=== PATIENT | male | born 1960 | race African-American/Black ===

== ENCOUNTER 2018-12-04 19:47 | Inpatient (IN) | payer MEDICAID ==
[~2018-12-04] VITALS: Ht 167.6 cm; Wt 66.7 kg
[~2018-12-04 19:47] MED LIST: AMLO10TA4 PO; BENA40TA9 PO; HYDR-4134 PO; METF-414 PO; SITA50TA3 PO
[2018-12-04 20:56] LABS: CHLORIDE 119 mEq/L (98-107)
[2018-12-04 20:57] LABS: BASOPHILS % 0.3 % (0.0-2.0); EOSINOPHILS % 0.9 % (0.0-5.0); HEMATOCRIT. 32.2 % (42.0-52.0); HEMOGLOBIN. 10.6 g/dL (14.0-18.0); LYMPHOCYTES % 19.2 % (20.0-50.0); MEAN CORPUSCULAR VOLUME 88.3 fL (80.0-94.0); MEAN PLATELET VOLUME 9.8 fl (7.4-10.4); MONOCYTES % 4.9 % (2.0-8.0); NEUTROPHILS % 74.7 % (40.0-76.0); PLATELET 227 x1000/uL (130-400); RED BLOOD CELL COUNT 3.64 mill/uL (4.7-6.1); RED CELL DISTRIBUTION WIDTH 15.8 % (11.6-14.6)
[2018-12-04 20:58] LABS: INR 1.2; PARTIAL THROMBOPLASTIN TIME 35.3 sec (23.4-31.0); PROTHROMBIN TIME 12.3 sec (9.1-11.1)
[2018-12-04] MEDS ORDERED: KCL 20MEQ/100ML PREMIX 100 ML IV ONE (21:15)
[2018-12-04 22:27] LABS: CLARITY URINE CLEAR (CLEAR); COLOR URINE YELLOW (YELLOW); KETONES URINE NEGATIVE (NEGATIVE); LEUKOCYTE ESTERASE URINE NEGATIVE (NEGATIVE); NITRITE URINE NEGATIVE (NEGATIVE); OCCULT BLOOD URINE NEGATIVE (NEGATIVE); PROTEIN URINE TRACE (NEGATIVE); SPECIFIC GRAVITY URINE 1.019 (1.005-1.030)
[2018-12-05 11:00] VITALS: BP 188/88
[2018-12-05] MEDS ORDERED: AMLODIPINE 5MG TABLET PO SCH (12:30)
[2018-12-05] MEDS ORDERED: ATROPINE SULFATE 1MG/ML VIAL IV PRN (12:30)
[2018-12-05 13:03] VITALS: BP 188/88
[2018-12-05] MEDS ORDERED: MEDICATION NOT ON FORMULARY EA (Metformin Hcl 1 TAB) PO SCH (15:00)
[2018-12-05] MEDS ORDERED: METFORMIN HCL 500MG TABLET PO SCH (15:30)
[2018-12-05 16:14] VITALS: BP 151/61
[2018-12-05] MEDS ORDERED: POTA20TA82 MT (16:27)
[2018-12-05] MEDS ORDERED: POTA25TA8 MT (16:27)
[2018-12-05] MEDS ORDERED: MIRT15TA MT (16:27)
[2018-12-05] MEDS ORDERED: ATOR-2 MT (16:27)
[2018-12-05] MEDS ORDERED: ASPI-986 MT (16:27)
[2018-12-05] MEDS ORDERED: CLOP75TA33 MT (16:27)
[2018-12-05] MEDS ORDERED: CLON0.1T MT (16:27)
[2018-12-05] MEDS ORDERED: INSU100I28 SQ (16:27)
[2018-12-05] MEDS ORDERED: TAMS0.4C31 MT (16:27)
[2018-12-05] MEDS ORDERED: LOSA50TA20 MT (16:27)
[2018-12-05] MEDS ORDERED: COR25 MT (16:27)
[2018-12-05] MEDS ORDERED: BISA10SU8 RC (16:27)
[2018-12-05] MEDS ORDERED: DEXTROSE 50% WATER 50ML SYRINGE IV PRN (16:30)
[2018-12-05] MEDS ORDERED: LEVOFLOXACIN 500 MG XX SCH (16:45)
[2018-12-05] MEDS: ENOXAPARIN 40MG/0.4ML SYR SUBCUT SCH ×2 (17:00→19:09)
[2018-12-05] MEDS ORDERED: MEDICATION NOT ON FORMULARY EA (Hydralazine Hcl 1 TAB) PO SCH (17:00)
[2018-12-05] MEDS ORDERED: HYDRALAZINE HCL 25MG TABLET PO SCH (17:00)
[2018-12-05] MEDS ORDERED: ASPIRIN 325MG EC TABLET PO NR (17:30)
[2018-12-05] MEDS: BLOOD SUGAR DIAGNOSTIC STRIP TEST SCH ×2 (17:35→21:39)
[2018-12-05] MEDS: INSULIN LISPRO 100 UNITS/ML SUBCUT SCH ×2 (17:40→21:00)
[2018-12-05] MEDS: TAMSULOSIN HCL 0.4MG SR CAPSULE PO SCH (18:15)
[2018-12-05] MEDS: PANTOPRAZOLE SODIUM 40 MG/VIAL IV SCH (18:15)
[2018-12-05] MEDS: DEXT 5%/0.45% NACL KCL 20MEQ/L 1,000 ML IV SCH (18:15)
[2018-12-05] MEDS: LOSARTAN POTASSIUM 100 MG TABLET PO SCH (18:15)
[2018-12-05] MEDS: LEVOFLOXACIN 500MG PREMIX 100 ML IV SCH (18:16)
[2018-12-05 20:00] VITALS: BP 147/76
[2018-12-05] MEDS ORDERED: KCL 20MEQ/100ML PREMIX 100 ML IV SCH (21:00)
[2018-12-05] MEDS: ATORVASTATIN CALCIUM 40MG TABLET PO SCH (21:40)
[2018-12-05] MEDS: MIRTAZAPINE 15MG TABLET PO SCH (21:40)
[2018-12-06] VITALS: BP 131/73
[2018-12-06 04:00] VITALS: BP 167/80
[2018-12-06] MEDS: INSULIN LISPRO 100 UNITS/ML SUBCUT SCH ×4 (06:45→20:42)
[2018-12-06] MEDS: BLOOD SUGAR DIAGNOSTIC STRIP TEST SCH ×4 (06:45→20:42)
[2018-12-06 07:30] VITALS: BP 175/73
[2018-12-06 08:20] LABS: BASOPHILS % 0.2 % (0.0-2.0); EOSINOPHILS % 1.5 % (0.0-5.0); HEMATOCRIT. 35.4 % (42.0-52.0); HEMOGLOBIN. 11.4 g/dL (14.0-18.0); LYMPHOCYTES % 19.3 % (20.0-50.0); MEAN CORPUSCULAR HEMOGLOBIN 28.5 pg (28.0-32.0); MEAN CORPUSCULAR VOLUME 88.7 fL (80.0-94.0); MEAN PLATELET VOLUME 9.9 fl (7.4-10.4); MONOCYTES % 5.8 % (2.0-8.0); NEUTROPHILS % 73.2 % (40.0-76.0); PLATELET 209 x1000/uL (130-400); RED BLOOD CELL COUNT 3.99 mill/uL (4.7-6.1); RED CELL DISTRIBUTION WIDTH 15.9 % (11.6-14.6)
[2018-12-06 08:34] LABS: CHLORIDE 115 mEq/L (98-107)
[2018-12-06] MEDS: ASPIRIN 325MG EC TABLET PO SCH (08:37)
[2018-12-06] MEDS: LOSARTAN POTASSIUM 100 MG TABLET PO SCH (08:37)
[2018-12-06] MEDS: TAMSULOSIN HCL 0.4MG SR CAPSULE PO SCH (08:38)
[2018-12-06] MEDS: PANTOPRAZOLE SODIUM 40 MG/VIAL IV SCH (08:38)
[2018-12-06] MEDS ORDERED: AMLODIPINE 5MG TABLET PO SCH (09:00)
[2018-12-06] MEDS ORDERED: BENAZEPRIL 10MG TABLET PO SCH (09:00)
[2018-12-06] MEDS ORDERED: MEDICATION NOT ON FORMULARY EA (Benazepril Hcl 1 TAB) PO SCH (09:00)
[2018-12-06] MEDS ORDERED: POTASSIUM CHLORIDE 20MEQ TABLET SR PO NR (10:00)
[2018-12-06] MEDS: MAGNESIUM OXIDE 400MG TABLET PO SCH (11:25)
[2018-12-06 11:41] VITALS: BP 160/81
[2018-12-06 16:06] VITALS: BP 172/85
[2018-12-06] MEDS: LEVOFLOXACIN 500MG PREMIX 100 ML IV SCH (18:59)
[2018-12-06] MEDS: ENOXAPARIN 40MG/0.4ML SYR SUBCUT SCH (18:59)
[2018-12-06 20:00] VITALS: BP 174/92
[2018-12-06] MEDS: MIRTAZAPINE 15MG TABLET PO SCH (20:54)
[2018-12-06] MEDS: ATORVASTATIN CALCIUM 40MG TABLET PO SCH (20:54)
[2018-12-06] MEDS: HYDRALAZINE HCL 25MG TABLET PO SCH (21:00)
[2018-12-06] MEDS: DEXT 5%/0.45% NACL KCL 20MEQ/L 1,000 ML IV SCH (22:39)
[2018-12-07] VITALS: BP 164/82
[2018-12-07 04:00] VITALS: BP 166/80
[2018-12-07] MEDS: HYDRALAZINE HCL 25MG TABLET PO SCH (06:13)
[2018-12-07] MEDS: INSULIN LISPRO 100 UNITS/ML SUBCUT SCH ×2 (06:22→12:23)
[2018-12-07] MEDS: BLOOD SUGAR DIAGNOSTIC STRIP TEST SCH ×2 (06:22→12:22)
[2018-12-07 07:28] LABS: BASOPHILS % 0.2 % (0.0-2.0); EOSINOPHILS % 0.9 % (0.0-5.0); HEMATOCRIT. 37.7 % (42.0-52.0); HEMOGLOBIN. 12.2 g/dL (14.0-18.0); LYMPHOCYTES % 13.5 % (20.0-50.0); MEAN CORPUSCULAR HEMOGLOBIN 28.7 pg (28.0-32.0); MEAN CORPUSCULAR VOLUME 88.9 fL (80.0-94.0); MEAN PLATELET VOLUME 9.8 fl (7.4-10.4); MONOCYTES % 4.7 % (2.0-8.0); NEUTROPHILS % 80.7 % (40.0-76.0); PLATELET 229 x1000/uL (130-400); RED BLOOD CELL COUNT 4.24 mill/uL (4.7-6.1); RED CELL DISTRIBUTION WIDTH 15.8 % (11.6-14.6)
[2018-12-07 08:00] VITALS: BP 161/90
[2018-12-07] MEDS ORDERED: FAMOTIDINE 20MG/2ML VIAL IV SCH (09:00)
[2018-12-07] MEDS ORDERED: AMLODIPINE 10MG TABLET PO SCH (09:00)
[2018-12-07] MEDS: ASPIRIN 325MG EC TABLET PO SCH (09:00)
[2018-12-07] MEDS: LOSARTAN POTASSIUM 100 MG TABLET PO SCH (09:00)
[2018-12-07] MEDS: MAGNESIUM OXIDE 400MG TABLET PO SCH (10:02)
[2018-12-07] MEDS: TAMSULOSIN HCL 0.4MG SR CAPSULE PO SCH (10:03)
[2018-12-07 11:22] LABS: CHLORIDE 113 mEq/L (98-107)
[2018-12-07 12:00] VITALS: BP 153/88
[2018-12-07] MEDS ORDERED: HYDRALAZINE HCL 50MG TABLET PO SCH (14:00)
[2018-12-07 16:00] VITALS: BP 144/84
[2018-12-07] MEDS ORDERED: LEVOFLOXACIN 500MG TABLET PO SCH (18:00)
== END 2018-12-07 16:30 | DRG 201 ==
LOC: ER 19:47 → 8WST 12-05 00:32 → ENRESERV 12-05 08:20 → 8WST 12-05 14:54
PROVIDERS: ADMIT Ophthalmology; ATTEND Ophthalmology
DX: I44.0 Atrioventricular block, first degree (principal); G93.40 Encephalopathy, unspecified; E46 Unspecified protein-calorie malnutrition; E11.649 Type 2 diabetes mellitus with hypoglycemia without coma; Z66 Do not resuscitate; E87.6 Hypokalemia; E83.42 Hypomagnesemia; I10 Essential (primary) hypertension; E78.5 Hyperlipidemia, unspecified; N40.0 Benign prostatic hyperplasia without lower urinary tract symptoms; F32.9 Major depressive disorder, single episode, unspecified; Z68.23 Body mass index [BMI] 23.0-23.9, adult; I69.320 Aphasia following cerebral infarction; I69.391 Dysphagia following cerebral infarction; Z88.0 Allergy status to penicillin; I69.354 Hemiplegia and hemiparesis following cerebral infarction affecting left non-dominant side; Z79.84 Long term (current) use of oral hypoglycemic drugs; Z79.899 Other long term (current) drug therapy
CPT/HCPCS: 36415; 71045; 80048; 82962; 83735; 83880; 84443; 84484; 92610; 93005; 93306; 96365; 96366; 99285; A6261; C9113; J0461; J1650; J1956; J3480; J3490